=== PATIENT | female | born 1985 | race Caucasian/White ===

== ENCOUNTER 2018-07-16 18:21 | Outpatient (CLI) | END 2018-07-17 00:25 | disposition home or self-care (01) ==

== ENCOUNTER 2018-09-02 11:26 | Outpatient (CLI) | END 2018-09-02 13:20 | disposition home or self-care (01) ==

== ENCOUNTER 2018-10-11 18:45 | Inpatient (IN) | END 2018-10-16 17:44 | disposition home or self-care (01) | DRG 807 ==